=== PATIENT | male | born 1965 | race Caucasian/White ===

== ENCOUNTER 2019-06-24 10:05 | Emergency (ER) | payer SELFPAY ==
[2019-06-24 10:24] VITALS: O2SAT 96
--- NOTE | 2019-06-24 11:02 | RAD ---
EXAM DESCRIPTION: Chest,1 View CLINICAL HISTORY: sneezed then severe post lat inf rt rib pain COMPARISON: None available FINDINGS: The cardiomediastinal silhouette is unremarkable. There is no airspace consolidation or pleural effusion. The bronchovascular markings are within normal limits, and the lungs are not hyperinflated. There is no pneumothorax or acute fracture. IMPRESSION: No rib fracture or other abnormality to explain provided history. Electronically signed by: Reji Keller MD 06/24/2019 11:00 AM [facility]
--- NOTE | 2019-06-24 11:29 | RAD ---
EXAM DESCRIPTION: Ribs,Right 2 Views CLINICAL HISTORY: sneezed then severe post lat inf rt rib pain COMPARISON: Chest x-ray dated 24 June 2019 TECHNIQUE: 3 views FINDINGS: No pneumothorax is detected. No rib fracturing is seen. IMPRESSION: No rib fracturing is detected. Electronically signed by: Obdulio Crespo MD 06/24/2019 11:28 AM [facility]
--- NOTE | 2019-06-24 11:36 | ED.PDOC ---
History of Present Illness - General Chief Complaint: Back Pain or Injury Stated Complaint: BACK PAIN Time Seen by Provider: 06/24/19 10:33 Source: patient Exam Limitations: no limitations - History of Present Illness Initial Comments: The patient is a 54-year-old male presented emergency room secondary to persistent right inferior posterior lateral rib cage pain with coughing or sneezing. It started about 3 days ago when he sneezed. Pain is severe when it comes on and takes a few minutes to resolve. No real shortness of breath. No anterior chest pain. No palpitations. No trauma otherwise. There is no crepitus. There is no bruising. No subcutaneous air. No deformity. Pain is over an area about the size of my palm. No spinal tenderness to palpation. Area is well below the scapula. Good air movement. Timing/Duration: other - 2 to 3 days Severity: severe Improving Factors: immobilization Worsening Factors: movement Associated Symptoms: chest pain Allergies/Adverse Reactions: Allergies Morphine Allergy (Mild, Verified 06/24/19 10:24) Rash itching Home Medications: Ambulatory Orders Pmphovytysyuy-Fjlx-Rfhnlcodqy [Fioricet] 1 ea PO Q8H PRN #21 tab 06/24/19 Cyclobenzaprine HCl [Flexeril] 10 mg PO TID PRN #20 tab 06/24/19 Hydrochlorothiazide 25 mg PO DAILY 06/24/19 Review of Systems - Review of Systems Constitutional: States: no symptoms reported EENTM: States: no symptoms reported Respiratory: States: no symptoms reported Cardiology: States: chest pain Gastrointestinal/Abdominal: States: no symptoms reported Genitourinary: States: no symptoms reported Musculoskeletal: States: see HPI Skin: States: no symptoms reported Neurological: States: no symptoms reported Endocrine: States: no symptoms reported All other Systems: No Change from Baseline Past Medical History (General) - Patient Medical History Hx Hypertension: Yes Hx Cancer: No Hx Hepatitis C: No - Vaccination History Hx Tetanus, Diphtheria Vaccination: Yes Hx Influenza Vaccination: Yes Hx Pneumococcal Vaccination: No Immunizations Up to Date: Yes - Social History Hx Tobacco Use: Yes Hx Alcohol Use: Yes - SOCIALLY Hx Substance Use: No Hx Substance Use Treatment: No Hx Depression: No Family Medical History - Family History Father Family History: No Known Living Status: Hx Family Hypertension: Yes Physical Exam - Physical Exam General Appearance: Alert, Comfortable, No apparent distress Eye Exam: bilateral normal Ears, Nose, Throat: hearing grossly normal, normal ENT inspection Neck: full range of motion, supple Respiratory: lungs clear, normal breath sounds, no respiratory distress, no accessory muscle use, other - Chest wall as per history of present illness Cardiovascular/Chest: normal peripheral pulses, regular rate, rhythm, no edema Peripheral Pulses: radial,right: 2+, radial,left: 2+ Gastrointestinal/Abdominal: non tender, soft Rectal Exam: deferred Back Exam: no vertebral tenderness, other - See above Extremity: normal range of motion, non-tender, normal inspection, no pedal edema, normal capillary refill Neurologic: pecan gatherer II-XII nml as tested, alert, normal mood/affect, oriented x 3 Skin Exam: normal color Comments: Vital Signs - 24 hr 06/24/19 06/24/19 10:20 11:05 Temperature 98.2 F Pulse Rate [ 92 H 88 Pulse OX] Respiratory 18 16 Rate Blood Pressure 201/114 163/116 [L Arm] O2 Sat by Pulse 96 96 Oximetry Progress - Progress Progress: 06/24/19 11:36 The patient is a 54-year-old male presented to the emergency room secondary to right posterior lateral inferior chest wall pain with coughing and sneezing. X-ray of the chest and right-sided rib series shows no obvious fracture. No pneumothorax. no infection. His pain is most likely coming from intercostal muscle spasm. He is going to be written for Flexeril and Fioricet for as needed use. He does need to be careful using these in conjunction as they can cause some drowsiness. He does have some moderate elevated blood pressure which needs to be followed by his primary care doctor. Topical heat and stretching are recommended. ER warnings are given. jose luis sapp [phone] - EKG/XRAY/CT CT Ordered: No CT Interpretation Call Back: No Departure - Departure Clinical Impression: Intercostal muscle strain Qualifiers: Encounter type: initial encounter Qualified Code(s): S29.011A - Strain of muscl e and tendon of front wall of thorax, initial encounter Disposition: Discharge to Home or Self Care Condition: Good Departure Forms: ED Discharge - Pt. Copy, Patient Portal Self Enrollment Instructions: DI for Back Spasm Diet: regular diet Activity: increase activity as tolerated Prescriptions: Gfftofnhberij-Ztjl-Bagvsvrpwq [Fioricet] 1 ea PO Q8H PRN #21 tab PRN Reason: Pain Cyclobenzaprine HCl [Flexeril] 10 mg PO TID PRN #20 tab PRN Reason: Muscle Spasms Home Medications: Ambulatory Orders Pougdshjxrmnm-Rhyk-Gfdzlmjkfm [Fioricet] 1 ea PO Q8H PRN #21 tab 06/24/19 Cyclobenzaprine HCl [Flexeril] 10 mg PO TID PRN #20 tab 06/24/19 Hydrochlorothiazide 25 mg PO DAILY 06/24/19 Additional Instructions: The patient is a 54-year-old male presented to the emergency room secondary to right posterior lateral inferior chest wall pain with coughing and sneezing. X-ray of the chest and right-sided rib series shows no obvious fracture. No pneumothorax. no infection. His pain is most likely coming from intercostal muscle spasm. He is going to be written for Flexeril and Fioricet for as needed use. He does need to be careful using these in conjunction as they can cause some drowsiness. He does have some moderate elevated blood pressure which needs to be followed by his primary care doctor. Topical heat and stretching are recommended. ER warnings are given.
[2019-06-24 11:51] VITALS: BP 171/110; TEMP 98.3
== END 2019-06-24 11:50 | disposition home or self-care (01) ==
LOC: ER 10:05
DX: S29.011A Strain of muscle and tendon of front wall of thorax, initial encounter (principal); I10 Essential (primary) hypertension; X50.9XXA Other and unspecified overexertion or strenuous movements or postures, initial encounter; Y92.9 Unspecified place or not applicable; Z87.891 Personal history of nicotine dependence